=== PATIENT | female | born 1950 | race Caucasian/White ===

== ENCOUNTER 2021-01-30 09:52 | Outpatient (AMBR) | payer MEDICARE, BC, SELFPAY ==
--- NOTE | 2021-01-22 09:08 | PTNOTE_ITS ---
PT OP Initial Eval Patient Information Visit Reasons: low back pain Medical Diagnosis: M54.16 Z98.1 M54.5 Treatment Dx #1: LBP with radiculopathy Date of Onset: 06/2020 Initial Assessment Subjective Pt is 70 yr old female s/p lumbar fusion in June that reports some stiffness and weakness in the core. She feels limited with yardwork and some HH chores that involve bending, lifting and pulling. Pt reports the LE pain that she had prior to sx is gone. PMH: TKA x2, lumbar fusion 2020, bladder support Imaging: X-ray and MRI of L/S in EMR Pt goal: to strengthen her core Objective Trunk ArOM: B SB 50% of normal with pain L>R Extension: 10% Flexion: 8 from floor with LBP B rotation: 60% R SLR ROM: 90 deg. L SLR: 90 deg LE strength: B hamstrings: 4-/5 Quads 4-/5 Hip abd/add 4-/5 Core activation: 4-/5 with rotary LE isometrics Assessment Pt presentation consistent with lumbar fusion with decreased deep abdominal and core activation. Pt requires skilled therapy in order to improve core activation and has fair rehab potential. Short Term and Prison Goals 1. Ind with HEP 2. Improved core activation with resisted LE rotation to at least 4+/5 3. Pt will demonstrate proper core activation in standing, quadruped and supine positions Treatment Plan 1. Manual therapy 2. Therex 3. Modalities as indicated, moist heat pack, ice, electrical stimulation,? Frequency and Duration 2x a week for 6 weeks Certification Dates: 01/22/21 to 04/22/21 Office Procedures PT Treatments PT Date of Service: 01/22/21 OP PT Eval Mod Complex 30 minutes: Yes
--- NOTE | 2021-01-30 17:56 | PT.ODAYNRPT ---
PT Outpatient Daily Note Date of Service: 01/30/21 OP Daily Note Visit Reasons: low back pain Outpatient Physical Therapy Treatment Date: 01/30/21 Subjective: Same as time of evaluation Objective: See f/S for therex MT: STM to L/S with Mahamed x10' Assessment: Low tissue irritability of L/S with MT and therex today Plan: Continue per POC Office Procedures PT Treatments PT Date of Service: 01/22/21 OP PT Eval Mod Complex 30 minutes: Yes PT Treatments PT Date of Service: 01/30/21 Therapeutic Exercise 15 minutes: Yes Manual Watermelon Inspector 15 minutes: Yes
== END 2021-02-03 23:59 | disposition home or self-care (01) ==
PROVIDERS: PCP Family Medicine; Referring Provider Family Medicine; Visit Provider Physician Assistant
DX: M54.16 Radiculopathy, lumbar region (principal); M54.50 Low back pain, unspecified; M47.896 Other spondylosis, lumbar region; R53.1 Weakness; M53.86 Other specified dorsopathies, lumbar region
CPT/HCPCS: 97110; 97140; 97162

== ENCOUNTER 2021-02-11 09:01 | Outpatient (AMBR) | payer MEDICARE, BC, SELFPAY ==
--- NOTE | 2021-02-04 13:20 | PTNOTE_ITS ---
PT Outpatient Daily Note Date of Service: 02/04/2021 OP Daily Note Visit Reasons: low back pain Outpatient Physical Therapy Treatment Date: 02/04/21 Subjective: pt states her back is feeling better but still is very cautions. Objective: see flow sheet. Assessment: pt questioned LTR due to her precautions so we stopped the LTR. she completed all other ther ex. during STM using thera bar to her back noted she had muscle tension on B sides of the mid back but the L side was greater than the R. pt was surprised to have tension there if she has low back issues. informed pt about possible compensation for the LBP. Plan: continue POC per PT. Length of Time (minutes) of Treatment: 30 Minutes MAKE UP OPERATOR HELPER Service Modifier Method I: Divide the number of min of care provided by the MAKE UP OPERATOR HELPER/TECHNOLOGY TRAINING ASSOCIATE by the total min of care provided then multiply by 100. If greater than 11 percent modifier is required. Method II: Divide the total time of care provided to patient by 10 (round to the nearest whole number) and add 1 min. to set the minimum time requirement. If treatment total was 60 min., then 10% of 6 min Did MAKE UP OPERATOR HELPER provide more than 10% of the care?: Yes PT CQ modifier applied: CQ Modifier applied Office Procedures PT Treatments PT Date of Service: 02/04/21 Therapeutic Exercise 30 minutes: Yes
--- NOTE | 2021-02-06 10:06 | PT.ODAYNRPT ---
PT Outpatient Daily Note Date of Service: 02/06/2021 OP Daily Note Visit Reasons: low back pain Outpatient Physical Therapy Treatment Date: 02/06/21 Subjective: Pt reports she is feeling little better. Objective: See flow chart for therex. MT: STM w/ graston x 10mins. Assessment: Pt feeling little cramps to anterior hips w/ supine marches but was able to complete reps. Pt tolerated MT well w/ out complaints. Muscle tension LB to thoracic spinalis. Plan: Cont POC per PT. Length of Time (minutes) of Treatment: 30 Minutes Office Procedures PT Treatments PT Date of Service: 02/06/21 Therapeutic Exercise 30 minutes: Yes PT Treatments PT Date of Service: 02/04/21 Therapeutic Exercise 30 minutes: Yes
== END 2021-03-05 23:59 | disposition home or self-care (01) ==
PROVIDERS: PCP Family Medicine; Referring Provider Family Medicine; Visit Provider Physician Assistant
DX: M54.16 Radiculopathy, lumbar region (principal); Z98.1 Arthrodesis status; M47.896 Other spondylosis, lumbar region; M54.50 Low back pain, unspecified
CPT/HCPCS: 97110

== ENCOUNTER 2024-07-14 14:34 | Inpatient (IN) | payer MEDICARE, BC, SELFPAY ==
--- NOTE | 2024-07-14 15:21 | XR_ITS ---
Examination: Knee, left , 3 views Technique: Knee AP, lateral, oblique 3 views Date and time of exam: July 14, 2024 1629 hrs. Indications: Patient fell today with injury to the knee, knee pain Findings: Total left knee arthroplasty. Satisfactory alignment Moderate fluid in the joint space Possible fracture involving the lateral femoral condyle Impression: Recommend CT scan knee without contrast follow-up to exclude fracture of the lateral femoral condyle
[2024-07-14 15:23] VITALS: PULSE 67; RESP 20; O2SAT 99; BMI 29.2
[2024-07-14] MEDS: fentaNYL CIT INJ 50 mCg/ML AMP 2ML IVP (15:33)
[2024-07-14] MEDS: ONDANSETRON INJ 2 MG/ML INJ 2 ML 4 MG IV (15:33)
[2024-07-14 15:42] VITALS: BP 157/81; PULSE 66; RESP 16; TEMP 36.7; O2SAT 97
--- NOTE | 2024-07-14 15:59 | PD.EDLOWEX ---
Lower Extremity Injury RME/HPI General Chief Complaint: Extremity Injury, Lower Stated Complaint: KNEE PAIN Time Seen by Provider: 07/14/24 14:41 Arrival date/time: 07/14/24 14:34 RME / HPI RME / HPI Narrative: 74 year old female presents to the ED, BIBA from home, for evaluation of left knee pain. According to EMS, the patient reports twisting her left ankle, which caused her to lose balance and fall. She was able to prevent the fall by holding onto a rail. The patient denies actually falling to the ground. EMS states that the patient experienced severe pain with any movement of the left leg or knee. No pain medication was administered en route. Upon arrival to the ED, the patient appears to be in pain and complains of left knee pain. No other injuries are reported. Related Data Previous Rx's ?Medication ?Instructions ?Recorded donepezil 5 mg tablet 10 mg (2 x 5 mg) PO HS 14 days #28 07/18/24 tabs hydrocodone 5 mg-acetaminophen 325 1 tab PO Q4HR PRN Pain Scale 4-6 07/18/24 mg tablet (Moderate #10 tabs sennosides 8.6 mg tablet (senna) 8.6 mg PO QDAY PRN constipation 14 07/18/24 days #14 tabs sertraline 25 mg tablet 75 mg (3 x 25 mg) PO HS 14 days 07/18/24 #42 tabs Allergies Allergy/AdvReac Type Severity Reaction Status Date / Time No Known Drug Allergies Allergy Verified 07/14/24 20:10 Review of Systems Review of Systems Narrative Review of Systems: GEN: No fever, no chills, no weight loss EYES: No discharge, no visual changes, no pain HEENT: No ear pain, no congestion, no sore throat PULM: No shortness of breath, no cough, no congestion CV: No chest pain, no palpitations GI: No nausea, no vomiting, no diarrhea, no pain, no constipation : No frequency, no urgency, no dysuria MUSC/SKEL: +Left knee pain. no back pain SKIN: No rash NEURO: No weakness, no headache Past Medical History Past Medical History GASTROINTESTINAL: Positive Gastrointestinal Disorders MUSCULOSKELETAL: Positive Musculoskeletal Disorders and Carpal Tunnel Syndrome (bilat) OTHER HISTORY: Positive Falls Surgical History SURGICAL: Positive Joint Replacement and Knee Sx Social History SMOKING STATUS: Never smoker ED Exam Narrative Physical exam: GENERAL APPEARANCE: alert and oriented x 4, well-developed, well-nourished, appears to be in pain HEENT: Normocephalic, atraumatic; pupils equal, round, reactive to light; EOMI; mucous membranes pink, moist; oropharynx clear NECK: Supple LUNGS: CTABL; no wheezes, no rales, no rhonchi HEART: Regular rate, regular rhythm; normal S1, S2; no murmurs ABDOMEN: non distended; normal BS; soft, no tenderness, no guarding, no rebound; no masses, no organomegaly, no hernia BACK: no CVA tenderness EXTREMITIES: LROM of left knee secondary to pain, deformity of the left knee with patella deviated laterally; no edema NEUROLOGIC: awake; alert and oriented x4; cranial nerves II-XII grossly intact; no focal sensory or motor deficits PSYCHIATRIC: appropriate mood and affect SKIN: warm, dry, normal color; no rashes Course Course Course Narrative: 1800: Patient signed out pending CT and final disposition. Quality Measures none Orders Category Date Time Status EKG (ED ONLY) *Do not use* NOW Care 07/14/24 20:[address] knee LT wo con Stat Exams 07/14/24 17:32 Completed CXRP [XR chest 1V portable] Stat Exams 07/14/24 20:51 Completed EKG (ED Only) Stat Exams 07/14/24 20:51 Draft XR knee comp LT 4V Stat Exams 07/14/24 15:21 Completed CBC Stat Lab 07/14/24 21:08 Completed CMP [Comprehensive Metabolic Panel] Stat Lab 07/14/24 21:08 Completed PT [Prothrombin Time with INR] Stat Lab 07/14/24 21:08 Completed PTT [Partial Thromboplastin Time] Stat Lab 07/14/24 21:08 Completed HYDROmorphone INJ [Dilaudid Inj] Med 07/14/24 17:09 Discontinued 1 mg IVP X1 ONE Ondansetron Inj [Zofran Inj] Med 07/14/24 15:15 Discontinued 4 mg IV X1 ONE fentaNYL INJ [Sublimaze Inj] Med 07/14/24 15:15 Discontinued 50 mcg IVP X1 ONE Vital Signs Vital signs: Vital Signs Temperature 98.0 F 07/14/24 15:42 Pulse Rate 66 07/14/24 15:42 Respiratory Rate 16 07/14/24 15:42 Blood Pressure 157/81 H 07/14/24 15:42 Pulse Oximetry (%) 97 07/14/24 15:42 Oxygen Delivery Method Room Air 07/14/24 15:42 Pulse ox is 97% on room air which is adequate. Procedures -ED Orthopedic Joint Reduction Joint #1: Time Out Performed: Yes Side: Left Joint Reduction Location: knee/patella Analgesia: other (Fentanyl ) Technique used: direct manipulation Post-reduction neuro exam: intact Post-reduction vascular: intact Post Reduction X-Ray Obtained: Yes Post Reduction X-Ray Results: reduced Patient Tolerated Procedure: well Procedural Sedation Indication: fracture/dislocation reduction ASA: 1 Preparation: property assessment monitor applied, pulse oximeter, supplemental O2 applied, suction/airway equipment at bedside and IV secured Fentanyl: IV Fentanyl dose (mcg): 50 Extremity Injury, Lower MDM Narrative MDM Narrative:: Cuca Felton am scribing for and in the presence of Dr. Carlos. Patient data External records reviewed:: [facility] previous records (I reviewed H&P from 10/10/2020 ) and EMS form Clinical information provided by:: patient and EMS Social determinants that could affect healthcare access:: none Patient has the following chronic illnesses:: No chronic medical history reported How is presenting disease/condition affected by chronic disease/condition?: no chronic disease Evaluation data The following diagnostics were reviewed and interpreted by me:: radiology exam(s) Lab and/or radiology exams considered but not ordered:: None Interpretation Summary: Ordering Physician: Gabriela Carlos MD Date of Service: 07/14/24 Procedure(s): XR knee comp LT 4V Accession Number(s): [id number] cc: Carlton Warren MD; Gabriela Carlos MD; Saúl Hughes MD~ Examination: Knee, left , 3 views Technique: Knee AP, lateral, oblique 3 views Date and time of exam: July 14, 2024 1629 hrs. Indications: Patient fell today with injury to the knee, knee pain Findings: Total left knee arthroplasty. Satisfactory alignment Moderate fluid in the joint space Possible fracture involving the lateral femoral condyle Impression: Recommend CT scan knee without contrast follow-up to exclude fracture of the lateral femoral condyle Dictated By: Carlton Warren MD Signed By: <Electronically signed by Carlton Warren MD in OV> 07/14/24 5149 Medications / Prescriptions Medications or Prescriptions considered but not ordered:: None Medication administrations:: Medication Administration History Acetaminophen (Acetaminophen 325 Mg Tablet) 650 mg PO Q6H PRN PRN Reason: Fever >100.3 or pain 1-3 Stop: 08/13/24 21:05 Hydrocodone Bitart/Acetaminophen (Hydrocodone/Apap 5/325 Tablet) 1 tab PO Q4HR PRN PRN Reason: PAIN SCALE 4-6 (Moderate Stop: 07/19/24 21:05 Last Admin: 07/18/24 11:00 Dose: 1 tab Documented By: Admin: 07/17/24 20:31 Dose: 1 tab Documented By: Admin: 07/17/24 08:36 Dose: 1 tab Documented By: Admin: 07/16/24 20:36 Dose: 1 tab Documented By: Admin: 07/16/24 12:32 Dose: 1 tab Documented By: Admin: 07/16/24 05:26 Dose: 1 tab Documented By: Admin: 07/15/24 12:56 Dose: 1 tab Documented By: Admin: 07/15/24 08:05 Dose: 1 tab Documented By: Admin: 07/15/24 00:36 Dose: 1 tab Documented By: MARIIA Donepezil HCl (Donepezil Hcl 5 Mg Tablet) 10 mg PO HS MARYELLEN Stop: 08/14/24 20:59 Last Admin: 07/17/24 20:32 Dose: 10 mg Documented By: Admin: 07/16/24 20:36 Dose: 10 mg Documented By: Admin: 07/15/24 20:35 Dose: 10 mg Documented By: AWA Heparin Sodium (Porcine) (Heparin Sod Inj 5000 Unit/Ml Vial) 5,000 unit SC Q8HR MARYELLEN Stop: 07/28/24 21:59 Last Admin: 07/18/24 13:20 Dose: 5,000 unit Documented By: CHARY Co-signed By: JAREK Admin: 07/18/24 05:08 Dose: 5,000 unit Documented By: MARIIA Co-signed By: REECE Admin: 07/17/24 21:27 Dose: 5,000 unit Documented By: MARIIA Co-signed By: REZA Admin: 07/17/24 13:13 Dose: 5,000 unit Documented By: FABIÁN Co-signed By: CHENG Admin: 07/17/24 05:02 Dose: 5,000 unit Documented By: AWA Co-signed By: REECE Admin: 07/16/24 20:42 Dose: 5,000 unit Documented By: AWA Co-signed By: BRIAN Admin: 07/16/24 14:22 Dose: 5,000 unit Documented By: Co-signed By: BLAINE Admin: 07/16/24 05:26 Dose: 5,000 unit Documented By: AWA Co-signed By: DIEGO Admin: 07/15/24 20:40 Dose: 5,000 unit Documented By: AWA Co-signed By: REECE Admin: 07/15/24 13:00 Dose: 5,000 unit Documented By: Co-signed By: AYDEN Admin: 07/15/24 06:02 Dose: Not Given Documented By: MARIIA Non-Admin Reason: Held for Procedure Admin: 07/14/24 22:26 Dose: 5,000 unit Documented By: LUKAS Co-signed By: AGATHA Hydralazine HCl (Hydralazine Inj 20 Mg/Ml Vial) 10 mg IV Q4HR PRN PRN Reason: Hypertension Stop: 08/14/24 17:18 Morphine Sulfate (Morphine Sulf Inj 10 Mg/Ml Vial) 2 mg IVP Q6H PRN PRN Reason: Pain 7-10 Stop: 07/19/24 21:06 Last Admin: 07/16/24 00:04 Dose: 2 mg Documented By: Admin: 07/15/24 17:23 Dose: 2 mg Documented By: Admin: 07/15/24 11:18 Dose: 2 mg Documented By: Admin: 07/15/24 03:23 Dose: 2 mg Documented By: MARIIA Polyethylene Glycol (Polyethylene Glycol 17 Gm Packet) 17 gm PO QDAY PRN; Protocol PRN Reason: constipation Stop: 08/16/24 08:59 Sennosides (Senna Tablet) 1 tab PO QDAY MARYELLEN; Protocol Stop: 08/16/24 08:59 Last Admin: 07/18/24 08:00 Dose: 1 tab Documented By: [email or web address] Admin: 07/17/24 10:48 Dose: Not Given Documented By: FABIÁN Non-Admin Reason: Already given Sertraline HCl (Sertraline Hcl 25 Mg Tablet) 75 mg PO HS MARYELLEN Stop: 08/14/24 20:59 Last Admin: 07/17/24 20:31 Dose: 75 mg Documented By: Admin: 07/16/24 20:36 Dose: 75 mg Documented By: Admin: 07/15/24 20:34 Dose: 75 mg Documented By: AWA Discontinued Medications Acetaminophen (Acetaminophen 325 Mg Tablet) 650 mg PO Q6H PRN PRN Reason: Fever >101.5 Stop: 08/13/24 21:05 Fentanyl Citrate (Fentanyl Cit Inj 50 Mcg/Ml Amp 2ml) 50 mcg IVP X1 ONE Stop: 07/14/24 15:16 Last Admin: 07/14/24 15:33 Dose: 50 mcg Documented By: DB Hydromorphone HCl (Hydromorphone Inj 2 Mg/Ml Vial) 1 mg IVP X1 ONE Stop: 07/14/24 17:10 Last Admin: 07/14/24 17:18 Dose: 1 mg Documented By: MARIO Sodium Chloride (Ns) 1,000 mls @ 75 mls/hr IV .[id number] [facility] Stop: 08/13/24 21:14 Last Admin: 07/16/24 05:27 Dose: 75 mls/hr Documented By: Infusion: 07/16/24 02:16 Dose: Infused Documented By: Admin: 07/15/24 12:56 Dose: 75 mls/hr Documented By: Infusion: 07/15/24 10:49 Dose: Infused Documented By: Admin: 07/14/24 21:29 Dose: 75 mls/hr Documented By: BD Lactulose (Lactulose Syrup 20 Gm/30 Ml Udc) 20 gm PO X1 ONE; Protocol Stop: 07/17/24 15:01 Last Admin: 07/17/24 15:31 Dose: 20 gm Documented By: SY Morphine Sulfate (Morphine Sulf Inj 10 Mg/Ml Vial) 2 mg IVP Q6H PRN PRN Reason: PAIN Stop: 07/19/24 21:06 Last Admin: 07/14/24 22:27 Dose: 2 mg Documented By: BD Ondansetron HCl (Ondansetron Inj 2 Mg/Ml Inj 2 Ml) 4 mg IV X1 ONE; Protocol Stop: 07/14/24 15:16 Last Admin: 07/14/24 15:33 Dose: 4 mg Documented By: DB Potassium Chloride (Potassium Chloride 10% 20 Meq/15 Ml Udc) 40 meq PO X1 ONE Stop: 07/15/24 08:02 Last Admin: 07/15/24 08:08 Dose: 40 meq Documented By: LT Potassium Chloride (Potassium Chloride 10% 20 Meq/15 Ml Udc) 40 meq PO X1 ONE Stop: 07/17/24 07:18 Last Admin: 07/17/24 08:36 Dose: 40 meq Documented By: SY Potassium Chloride (Potassium Chloride 20 Meq Tabcr) 20 meq PO X1 ONE Stop: 07/18/24 06:50 Last Admin: 07/18/24 07:57 Dose: 20 meq Documented By: [email or web address] Sennosides (Senna Tablet) 1 tab PO QDAY PRN; Protocol PRN Reason: constipation Stop: 08/16/24 05:33 Last Admin: 07/17/24 08:36 Dose: 1 tab Documented By: FABIÁN See above Consultations Consultation(s) initiated? (list below): No Diagnosis Most likely diagnosis given after review of the tests above:: Patella dislocation, possible femoral condyle fracture Admission Indicated Admission indicated?: not indicated Explain why admission is indicated or not indicated:: 1800: Patient signed out pending CT and final disposition. Admission Request Was there a request for admission?: No Disposition Plan Disposition Plan: other (specify) (Patient signed out) Discharge Plan Plan Patient condition on transfer: Stable Problem List Clinical Impression: Fall, Left knee pain, Closed dislocation of patella Patient/Caregiver Discharge Instructions Discharge Activity: as per physical therapy Discharge Order Discharge Orders: Discharge (Routine); Ordered 07/18/24 Ordered By: Agnieszka Swift
[2024-07-14] MEDS: HYDROmorphone INJ 2 MG/ML VIAL 1 MG IVP (17:18)
--- NOTE | 2024-07-14 17:32 | XR_ITS ---
Examination: CT left knee, without contrast. 2-D sagittal reconstructions. 2-D coronal reconstructions. 3-D reconstructions. Date and time of exam:July 14, 2024 1553 hrs. Indications: Patient fell today with injury to the knee, knee pain CTDI: vol (mGy):11.3 DLP: (mGycm):345 Technique: Multiple 1.25 mm axial sections of the left knee without intravenous contrast have been obtained. 2-D sagittal and coronal reconstructions have been obtained. 3-D reconstructions have been obtained. Low dose protocols were performed. One or more of the following dose reduction techniques were used; automated exposure control, adjustment of the mA and/or KV according to patient size, use of iterative reconstruction technique. Findings: Artifacts from the knee arthroplasty significantly limits this study Fracture lateral femoral condyle, coronal image 43, with mild offset, 2 mm Tibiofibular intact Impression: Acute fracture through the lateral femoral condyle with minimal offset
--- NOTE | 2024-07-14 18:32 | PD.EDADDENDU ---
Emergency Room Addendum Addendum Narrative: 1814: Care assumed from Dr. Carlos, the previous shift emergency physician. Past medical, surgical, social and family history reviewed. Vitals and home medications reviewed. Results and treatment plan discussed. I will assume the care of the patient at this time and will follow the patient, pending CT of the left knee results. Please refer to the emergency department record for history and examination from initial visit. 2147: Discussed case with Dr. Rodriguez from orthopedic surgery regarding consultation. Discussed patients ED course, exam findings, labs, and radiology results. States to admit the patient and agrees to consult. 2149: Discussed case with Dr. Almendarez from Hospitalist service regarding admission. Discussed patients ED course, exam findings, labs, and radiology results. The Hospitalist agrees to accept the patient for admission. RADIOLOGY RESULTS: [facility] Report Signed Patient: XAVIER FORREST Record#: [id number] Birthdate: 1950 Age/Sex: 74 / F Location: [facility] Attending Dr: Ordering Physician: Gabriela Carlos MD Date of Service: 07/14/24 Procedure(s): CT knee LT wo con Accession Number(s): [id number] cc: Carltno Warren MD; Gabriela Carlos MD; Saúl Hughes MD~ Examination: CT left knee, without contrast. 2-D sagittal reconstructions. 2-D coronal reconstructions. 3-D reconstructions. Date and time of exam:July 14, 2024 1553 hrs. Indications: Patient fell today with injury to the knee, knee pain CTDI: vol (mGy):11.3 DLP: (mGycm):345 Technique: Multiple 1.25 mm axial sections of the left knee without intravenous contrast have been obtained. 2-D sagittal and coronal reconstructions have been obtained. 3-D reconstructions have been obtained. Low dose protocols were performed. One or more of the following dose reduction techniques were used; automated exposure control, adjustment of the mA and/or KV according to patient size, use of iterative reconstruction technique. Findings: Artifacts from the knee arthroplasty significantly limits this study Fracture lateral femoral condyle, coronal image 43, with mild offset, 2 mm Tibiofibular intact Impression: Acute fracture through the lateral femoral condyle with minimal offset Dictated By: Carlton Warren MD Signed By: <Electronically signed by Carlton Warren MD in OV> 07/14/24 1823
[2024-07-14 19:20] VITALS: BP 148/70; PULSE 70; RESP 19; TEMP 36.6; O2SAT 97
--- NOTE | 2024-07-14 20:51 | XR_ITS ---
Examination: AP chest single view Technique one AP portable upright chest single view Exam date and time: July 14, 2024 2112 hrs. Indications: Admission chest x-ray Findings: Mild enlargement cardiac contour No pneumonia or pulmonary edema Mild to moderate elevation right hemidiaphragm Impression: No pneumonia or pulmonary edema
--- NOTE | 2024-07-14 20:51 | EKG_ITS ---
[facility] Test Date: 2024-07-14 Pat Name: XAVIER FORREST Department: Room: - Gender: Female Director Law Enforcement: : 1950 Requested By: Darian Augustin Order Number: [id number] Reading MD: Darian Augustin Measurements Intervals [place] Rate: 68 P: 43 [place]: 176 QRS: 8 QRSD: 98 T: 48 QT: 393 QTc: 421 Interpretive Statements SINUS RHYTHM VOLTAGE CRITERIA FOR LVH [MEETS CRITERIA IN ONE OF: R(aVL), S(V1), R(V5), R(V5/V6)+S(V1)] POSSIBLE INFERIOR MYOCARDIAL INFARCTION , PROBABLY OLD [30 ms Q WAVE IN II/aVF] No previous ECG available for comparison /store/S0/[id number]/[id number].pdf
[2024-07-14 21:00] VITALS: BP 165/76; PULSE 66; RESP 16; TEMP 36.9; O2SAT 96
--- NOTE | 2024-07-14 21:08 | PD.EVENT ---
Documentation for date of: 07/14/24 Event Note Event Note: A 73-year-old female presented to the ER with the chief complaint of left knee pain following a fall. The patient reported that she fell after stepping down from her front porch stairs when her foot twisted awkwardly. She landed on her left side, injuring her left knee. She denied any head trauma or loss of consciousness. The patient noted a history of prior knee problems and previous knee surgeries. She was unable to ambulate after the incident and was brought in by ambulance. The patient has a history of memory impairment and hyperlipidemia. Surgical history includes bilateral knee replacements, back surgery, and hand surgery (thumb). Current medications include Aricept, Zoloft, and vitamins; she recently discontinued Lipitor. Social history includes no reported tobacco, alcohol, or recreational drug use. She typically ambulated independently at baseline without assistive devices. In the ER, vital signs recorded as temp 98.0 F, HR 66 bpm, RR 16, BP 157/[address] showed an acute fracture through the lateral femoral condyle with minimal offset. EKG: Sinus rhythm, LVH. No pneumonia or pulmonary edema on CXR. Orthopedic surgery was consulted, and the patient was admitted for further management.
[2024-07-14 21:17] LABS: Basophils % (Auto) 0 % (0-2.5); Eosinophils % (Auto) 0 % (0-10); Hematocrit 36.4 % (36.0-46.0); Hemoglobin 12.9 g/dL (12.0-16.0); Immature Granulocytes % (Auto) 0 % (0-0); Immature Granulocytes Auto 0.02 Thou/mm3 (0.00-0.00); Lymphocytes # (Auto) 1.1 Thou/mm3 (1.0-4.8); Lymphocytes % (Auto) 11 % (10-50); Mean Corpuscular HGB Conc 35.4 g/dl (31.0-37.0); Mean Corpuscular Hemoglobin 30.2 pg (25.0-35.0); Mean Corpuscular Volume 85 fL (80-100); Monocytes # (Auto) 0.4 Thou/mm3 (0.0-0.8); Monocytes % (Auto) 4 % (0-12); Neutrophils # (Auto) 8.2 Thou/mm3 (1.8-7.7); Neutrophils % (Auto) 85 % (37-80); Nucleated Red Blood Cell % 0 /100 WBC (0); Platelet Count 167 Thou/mm3 (140-440); RDW Standard Deviation 39.6 fL (36.4-46.3); Red Blood Count 4.27 Miln/mm3 (4.00-5.20); White Blood Count 9.7 Thou/mm3 (3.6-11.0)
[2024-07-14] MEDS: SODIUM CHLORIDE 0.9% 1000 ML 1,000 ML 75 ML IV (21:29)
[2024-07-14 21:31] LABS: Alanine Aminotransferase 12 U/L (10-49); Albumin, Serum 4.2 gm/dL (3.4-4.8); Albumin/Globulin Ratio 1.6 (1.2-2.2); Alkaline Phosphatase 71 U/L (46-116); Anion Gap 7 (7-16); Aspartate Amino Transferase 19 U/L (0-34); BUN/Creatinine Ratio 23 Ratio (12-20); Bilirubin,Total 0.7 mg/dL (0.3-1.2); Blood Urea Nitrogen 16 mg/dL (9-23); Calcium 9.6 mg/dL (8.3-10.6); Calcium (Corrected) 9.6 mg/dL (8.5-10.1); Carbon Dioxide 28.6 mMol/L (20.0-31.0); Chloride 104 mMol/L (98-107); Creatinine (Component) 0.7 mg/dL (0.6-1.3); Estimated Creatinine Clearance 69.4 mL/min (>60); Globulin 2.7 gm/dL (2.3-3.5); Glucose 138 mg/dL (74-106); Osmolality,Calculated 282 (275-295); Potassium 4.4 mMol/L (3.4-5.1); Sodium 140 mMol/L (136-145); Total Protein 6.9 gm/dL (5.7-8.2); eGFR > 60 See Note
[2024-07-14 21:35] LABS: Partial Thromboplastin Time 25.3 Seconds (22.0-36.0); Prothrombin Time 11.4 Seconds (9.0-12.2)
--- NOTE | 2024-07-14 21:50 | PD.RESHP ---
Documentation for date of: 07/14/24 HPI History of Present Illness Chief complaint: Left knee pain History of present illness: The patient is a 74-year-old female with a previous medical history of Alzheimer's dementia, osteoporosis, hyperlipidemia who was brought to the ED due to mechanical fall. She reports that she was stepping down her porch, twisted her ankle and fell on the left leg. She denies hitting her head, losing consciousness, feeling dizzy, weak before the fall. Her daughter is at the bedside, reports that the patient has a history of falls. She was diagnosed with Alzheimer's disease approximately in 2019, gradually requiring more care. ED course: Blood pressure 157/91, pulse 66, afebrile, saturating well on room air. Labs show WBC count 9.7, hemoglobin 12.9, platelets 167, INR 1.0, sodium 140, potassium 4.4, BUN 16, creatinine 07, glucose 138, imaging showed acute fracture of lateral femoral condyle with minimal offset, chest x-ray was negative for pneumonia or pulmonary edema. EKG showed sinus rhythm. Patient is going to be admitted for acute lateral condyle fracture treatment and management. Social history: Former smoker, former daily drinker (a few drinks every day, stopped in 2019).Lives with her daughter, due to cognitive decline does not cook or drive. Ambulates around the house on herself. Surgical history: Bilateral knee replacement Home medications: Sertraline, donepezil, daughter denies that the patient is taking blood thinners. Review of Systems Review of Systems Systems Reviewed: All systems reviewed, normal except as documented Past Medical History Past Medical History NEUROLOGIC: Positive Neurological Disorders and Alzheimer's Disease GASTROINTESTINAL: Positive Gastrointestinal Disorders MUSCULOSKELETAL: Positive Musculoskeletal Disorders and Carpal Tunnel Syndrome (bilat) OTHER HISTORY: Positive Falls Surgical History SURGICAL: Positive Joint Replacement and Knee Sx Social History SMOKING STATUS: Never smoker Exam Vital Signs Temp Pulse Resp BP Pulse Ox O2 Del Method 98 F 70 19 148/70 H 97 Room Air 07/14/24 19:20 07/14/24 19:20 07/14/24 19:20 07/14/24 19:20 07/14/24 19:20 07/14/24 19:20 Narrative Exam Physical Exam General: Awake and in no acute distress. Conversational and non-toxic appearing. HEENT: Normocephalic, atraumatic, mucous membranes moist. Heart: Regular rate and rhythm, no murmurs. Lungs: Clear to auscultation with no wheezing or crackles. Abdomen: Soft, nondistended, nontender, positive bowel sounds. ?No guarding or rebound tenderness. Neurologic: Alert and oriented x2 (reports today is June), no gross neurological deficit, and patient able to move all 4 extremities. Extremities: No edema. Left knee is in splint. Pain in the left knee during movement. Able to wiggle toes. Skin: No rash or ecchymoses. Results: Labs 07/15/24 04:37 07/14/24 21:08 Labs: Short CBC 07/14/24 Range/Units 21:08 WBC 9.7 (3.6-11.0) Thou/mm3 Hgb 12.9 (12.0-16.0) g/dL Hct 36.4 (36.0-46.0) % Plt Count 167 (140-440) Thou/mm3 BMP 07/14/24 21:08 Sodium 140 Potassium 4.4 Chloride 104 Carbon Dioxide 28.6 BUN 16 Creatinine 0.7 Glucose 138 H Calcium 9.6 Liver Function 07/14/24 Range/Units 21:08 Total Bilirubin 0.7 (0.3-1.2) mg/dL AST 19 (0-34) U/L ALT 12 (10-49) U/L Alkaline Phosphatase 71 (46-116) U/L Albumin 4.2 (3.4-4.8) gm/dL Quality Measures Quality Measures VTE prophylaxis Advance care planning discussed with:: patient and child Medications Home Medications and Allergies Home Medications ?Medication ?Instructions ?Recorded ?Confirmed ?Type No Known Home Medications 10/10/20 10/10/20 History Allergies Allergy/AdvReac Type Severity Reaction Status Date / Time No Known Drug Allergies Allergy Verified 07/14/24 20:10 Visit Medications Acetaminophen (Acetaminophen 325 Mg Tablet) 650 mg PO Q6H PRN PRN Reason: Fever >100.3 or pain 1-3 Stop: 08/13/24 21:05 Hydrocodone Bitart/Acetaminophen (Hydrocodone/Apap 5/325 Tablet) 1 tab PO Q4HR PRN PRN Reason: PAIN SCALE 4-6 (Moderate Stop: 07/19/24 21:05 Heparin Sodium (Porcine) (Heparin Sod Inj 5000 Unit/Ml Vial) 5,000 unit SC Q8HR MARYELLEN Stop: 07/28/24 21:59 Sodium Chloride (Ns) 1,000 mls @ 75 mls/hr IV .[id number] MARYELLEN Stop: 08/13/24 21:14 Last Admin: 07/14/24 21:29 Dose: 75 mls/hr Morphine Sulfate (Morphine Sulf Inj 10 Mg/Ml Vial) 2 mg IVP Q6H PRN PRN Reason: PAIN Stop: 07/19/24 21:06 Discontinued Medications Acetaminophen (Acetaminophen 325 Mg Tablet) 650 mg PO Q6H PRN PRN Reason: Fever >101.5 Stop: 08/13/24 21:05 Fentanyl Citrate (Fentanyl Cit Inj 50 Mcg/Ml Amp 2ml) 50 mcg IVP X1 ONE Stop: 07/14/24 15:16 Last Admin: 07/14/24 15:33 Dose: 50 mcg Hydromorphone HCl (Hydromorphone Inj 2 Mg/Ml Vial) 1 mg IVP X1 ONE Stop: 07/14/24 17:10 Last Admin: 07/14/24 17:18 Dose: 1 mg Ondansetron HCl (Ondansetron Inj 2 Mg/Ml Inj 2 Ml) 4 mg IV X1 ONE; Protocol Stop: 07/14/24 15:16 Last Admin: 07/14/24 15:33 Dose: 4 mg Assessment & Plan Plan The patient is a 74-year-old female with a previous medical history of Alzheimer's dementia, osteoporosis, hyperlipidemia who was brought to the ED due to mechanical fall. Patient is going to be admitted for acute lateral condyle fracture treatment and management. #Acute left femoral condyle fracture #History of osteoporosis Due to mechanical fall. Plan: - Consult ortho - Pain control - Left knee splinting - Physical therapy #Alzheimer disease #Cognitive decline #Gait imbalance Falls most likely in the setting of gradually progressive Alzheimer dementia. Patient is AOx2, according to the daughter, has a history of falls. Daughter is inquiring regarding possibility of SNF placement for rehabilitation. Plan: - Continue sertraline - Continue donepezil - Physical therapy eval - Follow-up outpatient - Patient will benefit fron SNF placement on discharge Health maintenance: FEN: NPO DVT prophylaxis: heparin sc GI prophylaxis: none Dispo: med surg CODE STATUS: Full code Plan of care discussed with attending Dr. Almendarez. Tressa East MD, PGY 1. Attending Provider Attestation/Addendum Pt was evaluated and plan formulated together with the housestaff team. I have reviewed the residents note above and agree with most of its content. Please refer to the residents note for additional details.
[2024-07-14] MEDS: HEPARIN SOD INJ 5000 UNIT/ML VIAL SC (22:26)
[2024-07-14] MEDS: MORPHINE SULF INJ 10 MG/ML VIAL 2 MG IVP (22:27)
[2024-07-14 22:36] VITALS: BP 134/70; PULSE 66; RESP 18; TEMP 36.6; O2SAT 98
--- NOTE | 2024-07-14 23:39 | PC.NURSE ---
per dr.yang resendiz to take Labtrip wit water pt is npo
[2024-07-15] VITALS: BP 159/72; PULSE 72; RESP 18; TEMP 36.3; O2SAT 96
[2024-07-15] MEDS: HYDROcodone/APAP 5/325 TABLET 1 TAB PO ×3 (00:36→12:56)
[2024-07-15 02:23] VITALS: BMI 30.9
[2024-07-15] MEDS: MORPHINE SULF INJ 10 MG/ML VIAL 2 MG IVP ×3 (03:23→17:23)
[2024-07-15 04:00] VITALS: BP 130/58; PULSE 67; RESP 18; TEMP 36.5; O2SAT 94
--- NOTE | 2024-07-15 05:32 | PC.NURSE ---
Pt unable to vied, bladder scan done and shows 695cc, MD Tang made aware, to insert a green catheter ordered.
[2024-07-15 05:34] LABS: Basophils % (Auto) 0 % (0-2.5); Eosinophils % (Auto) 0 % (0-10); Hematocrit 33.9 % (36.0-46.0); Hemoglobin 11.9 g/dL (12.0-16.0); Immature Granulocytes % (Auto) 0 % (0-0); Immature Granulocytes Auto 0.03 Thou/mm3 (0.00-0.00); Lymphocytes # (Auto) 1.3 Thou/mm3 (1.0-4.8); Lymphocytes % (Auto) 16 % (10-50); Mean Corpuscular HGB Conc 35.1 g/dl (31.0-37.0); Mean Corpuscular Hemoglobin 30.6 pg (25.0-35.0); Mean Corpuscular Volume 87 fL (80-100); Monocytes # (Auto) 0.6 Thou/mm3 (0.0-0.8); Monocytes % (Auto) 7 % (0-12); Neutrophils # (Auto) 6.1 Thou/mm3 (1.8-7.7); Neutrophils % (Auto) 76 % (37-80); Nucleated Red Blood Cell % 0 /100 WBC (0); Platelet Count 166 Thou/mm3 (140-440); RDW Standard Deviation 40.6 fL (36.4-46.3); Red Blood Count 3.89 Miln/mm3 (4.00-5.20)
[2024-07-15 05:52] LABS: Anion Gap 8 (7-16); BUN/Creatinine Ratio 25 Ratio (12-20); Blood Urea Nitrogen 15 mg/dL (9-23); Calcium 9.2 mg/dL (8.3-10.6); Carbon Dioxide 27.7 mMol/L (20.0-31.0); Chloride 104 mMol/L (98-107); Creatinine (Component) 0.6 mg/dL (0.6-1.3); Estimated Creatinine Clearance 83.2 mL/min (>60); Glucose 125 mg/dL (74-106); Osmolality,Calculated 281 (275-295); Potassium 3.6 mMol/L (3.4-5.1); Sodium 140 mMol/L (136-145); eGFR > 60 See Note
--- NOTE | 2024-07-15 07:57 | PC.NURSE ---
Per MD Stone no surgery for pt continue with regular diet and will come see pt this am.
[2024-07-15 08:00] VITALS: BP 148/64; PULSE 70; RESP 18; TEMP 37; O2SAT 97
[2024-07-15] MEDS: POTASSIUM CHLORIDE 10% 20 MEQ/15 ML UDC 40 MEQ PO (08:08)
--- NOTE | 2024-07-15 12:31 | PC.SS ---
SS met with patient and daughter, Rae, at bedside. Daughter states patient will need to d/c to SNF due to her having stairs leading into the house front porch and back. Daughter states patient has fallen multiple times recently. She states they aren't sure if patient is having surgery yet. Patient resides alone. However, daughter has moved back down and will be living off main property in a back house. Patient is independent with ADL's. She was using a walker at home. No 02. Patient is currently on 02 here. Daughter states patient has hx: Alzheimers. Patient follows with a Neurologist [facility]. Family provides transportation to appointments. Pharmacy: [facility]. Alt medical decision maker: Rae, daughter,
[2024-07-15] MEDS: SODIUM CHLORIDE 0.9% 1000 ML 1,000 ML 75 ML IV (12:56)
[2024-07-15] MEDS: HEPARIN SOD INJ 5000 UNIT/ML VIAL SC ×2 (13:00→20:40)
--- NOTE | 2024-07-15 13:56 | ESPR_ITS ---
<Statement entered by Kyra Anne MD - 07/22/24 08:55> I reviewed above note and agree with findings and plans. I have also personally examined the patient with medicine team and went over assessment and plan with medical team including sports management internship and resident physician. Documentation for date of: 07/15/24 Senior resident attestation: Patient is a 73-year-old female, past medical history of dementia, hyperlipidemia and osteoporosis, presented following a mechanical fall, of note patient had prior bilateral knee replacements, hardware in place imaging shows acute left femoral condyle fracture, consulted orthopedic surgeon Dr. Rodriguez, pending orthopedic recommendations. Patient evaluated and examined at the bedside, plan of care discussed with rest of the team including my attending physician, except as noted. Quresh PGY2 Subjective Subjective Interval history: Patient admitted overnight for acute fracture of the lateral femoral condyle with minimal offset. Patient stated that she fell yesterday as she was heading up the stairs to enter her home home. Patient denied any dizziness, headaches, shortness of breath, chest pain. Patient denied seizure likely activity. Mild tenderness . Exam Vital Signs Temp Pulse Resp BP Pulse Ox O2 Del Method O2 Flow Rate 98.6 F 70 18 148/64 H 97 Nasal Cannula 2 07/15/24 08:00 07/15/24 08:00 07/15/24 08:00 07/15/24 08:00 07/15/24 08:00 07/15/24 08:00 07/15/24 08:00 Narrative Exam General Appearance: Alert & Oriented X3, well-nourished female who is lying in bed in mild distress. Tenderness present over left knee, worsened with ambulation. HEENT: Skull symmetrical and atraumatic. Conjunctivae pin and moist. Pupils equal, round, reactive to light and accommodation (PERRL). External ear without lesion or discharge. Straight, nares patient, mucosa pink, no discharge. No thyroid nodule appreciated. No cervical lymphadenopathy. Cardio: Normal Rate and Rhythm with S1 and S2 heart sounds. No murmurs or extra heart sounds auscultated. No bruits on carotid auscultation. No peripheral edema or cyanosis. Lungs: Symmetric with good expansion. Chest and back non-tender. Breath sounds vesicular without crackles, wheezing or rhonchi Abdomen: Non-tender, Non-distended, Normal Reactive Bowel Sounds Neuro: Alert, cooperative, oriented to person, place, and time. Speech clear. CN grossly intact. Upper motor strength 5/5 and Lower motor strength 5/5. Sensation intact. Objective Labs 07/17/24 04:35 07/17/24 04:35 Labs: Laboratory Results - last 24 hr 07/14/24 07/15/24 21:08 04:37 WBC 9.7 8.0 RBC 4.27 3.89 L Hgb 12.9 11.9 L Hct 36.4 33.9 L MCV 85 87 MCH 30.2 30.6 MCHC 35.4 35.1 RDW Std Deviation 39.6 40.6 Plt Count 167 166 Neut % (Auto) 85 H 76 Lymph % (Auto) 11 16 [place] % (Auto) 4 7 Eos % (Auto) 0 0 Baso % (Auto) 0 0 Neut # (Auto) 8.2 H 6.1 Lymph # (Auto) 1.1 1.3 [place] # (Auto) 0.4 0.6 Eos # (Auto) 0.0 0.0 Baso # (Auto) 0.0 0.0 Immature Gran # (Auto) 0.02 H 0.03 H Absolute Nucleated RBC 0.00 0.00 Immature Gran % 0 0 Nucleated RBC % 0 0 PT 11.4 INR 1.0 APTT 25.3 Sodium 140 140 Potassium 4.4 3.6 D Chloride 104 104 Carbon Dioxide 28.6 27.7 Anion Gap 7 8 BUN 16 15 Creatinine 0.7 0.6 Estim Creat Clear Calc 69.4 83.2 eGFR > 60 > 60 BUN/Creatinine Ratio 23 H 25 H Glucose 138 H 125 H Calculated Osmolality 282 281 Calcium 9.6 9.2 Corrected Calcium 9.6 Total Bilirubin 0.7 AST 19 ALT 12 Alkaline Phosphatase 71 Total Protein 6.9 Albumin 4.2 Globulin 2.7 Albumin/Globulin Ratio 1.6 Quality Measures Quality Measures VTE prophylaxis Advance care planning discussed with:: patient Assessment & Plan Assessment Current Active Medications: Generic Name Dose Route Start Last Admin Trade Name Freq PRN Reason Stop Dose Admin Acetaminophen 650 mg 07/14/24 21:47 Acetaminophen 325 Mg Tablet PO 08/13/24 21:05 Q6H PRN Fever >100.3 or pain 1-3 Hydrocodone Bitart/Acetaminophen 1 tab 07/14/24 21:06 07/15/24 12:56 Hydrocodone/Apap 5/325 Tablet PO 07/19/24 21:05 1 tab Q4HR PRN Administration PAIN SCALE 4-6 (Moderate Donepezil HCl 10 mg 07/15/24 21:00 Donepezil Hcl 5 Mg Tablet PO 08/14/24 20:59 HS MARYELLEN Heparin Sodium (Porcine) 5,000 unit 07/14/24 22:00 07/15/24 13:00 Heparin Sod Inj 5000 Unit/Ml Vial SC 07/28/24 21:59 5,000 unit Q8HR MARYELLEN Administration Sodium Chloride 1,000 mls @ 75 mls/hr 07/14/24 21:15 07/15/24 12:56 Ns IV 08/13/24 21:14 75 mls/hr .[id number] MARYELLEN Administration Morphine Sulfate 2 mg 07/14/24 23:39 07/15/24 11:18 Morphine Sulf Inj 10 Mg/Ml Vial IVP 07/19/24 21:06 2 mg Q6H PRN Administration Pain 7-10 Sertraline HCl 75 mg 07/15/24 21:00 Sertraline Hcl 25 Mg Tablet PO 08/14/24 20:59 HS MARYELLEN Plan The patient is a 74-year-old female with a previous medical history of Alzheimer's dementia, osteoporosis, hyperlipidemia who was brought to the ED due to mechanical fall. Patient is going to be admitted for acute lateral condyle fracture treatment and management. #Acute left femoral condyle fracture #History of osteoporosis Due to mechanical fall. Plan: - Consult ortho - Pain control - Left knee splinting - Physical therapy #Alzheimer disease #Cognitive decline #Gait imbalance Falls most likely in the setting of gradually progressive Alzheimer dementia. Patient is AOx2, according to the daughter, has a history of falls. Daughter is inquiring regarding possibility of SNF placement for rehabilitation. Plan: - Continue sertraline - Continue donepezil - Physical therapy eval - Follow-up outpatient - Patient will benefit fron SNF placement on discharge Health maintenance: FEN: NPO DVT prophylaxis: heparin sc GI prophylaxis: none Dispo: med surg CODE STATUS: Full code - The patient's plan was discussed with attending Dr. Anne and senior residents Orlin Marie MD PGY1 Internal Medicine
[2024-07-15 16:00] VITALS: BP 124/60; PULSE 70; RESP 18; TEMP 36.9; O2SAT 95
[2024-07-15 20:00] VITALS: BP 135/62; PULSE 71; RESP 20; TEMP 37.1; O2SAT 96
[2024-07-15] MEDS: SERTRALINE HCL 25 MG TABLET 75 MG PO (20:34)
[2024-07-15] MEDS: DONEPEZIL HCL 5 MG TABLET 10 MG PO (20:35)
[2024-07-16] VITALS: BP 139/69; PULSE 83; RESP 18; TEMP 36.8; O2SAT 94
[2024-07-16] MEDS: MORPHINE SULF INJ 10 MG/ML VIAL 2 MG IVP (00:04)
[2024-07-16 04:00] VITALS: BP 147/76; PULSE 90; RESP 20; TEMP 36.6; O2SAT 96
[2024-07-16] MEDS: HEPARIN SOD INJ 5000 UNIT/ML VIAL SC ×3 (05:26→20:42)
[2024-07-16] MEDS: HYDROcodone/APAP 5/325 TABLET 1 TAB PO ×3 (05:26→20:36)
[2024-07-16] MEDS: SODIUM CHLORIDE 0.9% 1000 ML 1,000 ML 75 ML IV (05:27)
[2024-07-16 05:53] LABS: Basophils % (Auto) 1 % (0-2.5); Eosinophils # (Auto) 0.1 Thou/mm3 (0.0-0.5); Eosinophils % (Auto) 1 % (0-10); Hematocrit 33.1 % (36.0-46.0); Hemoglobin 11.3 g/dL (12.0-16.0); Immature Granulocytes % (Auto) 0 % (0-0); Immature Granulocytes Auto 0.02 Thou/mm3 (0.00-0.00); Lymphocytes # (Auto) 1.4 Thou/mm3 (1.0-4.8); Lymphocytes % (Auto) 24 % (10-50); Mean Corpuscular HGB Conc 34.1 g/dl (31.0-37.0); Mean Corpuscular Hemoglobin 30.5 pg (25.0-35.0); Mean Corpuscular Volume 90 fL (80-100); Monocytes # (Auto) 0.6 Thou/mm3 (0.0-0.8); Monocytes % (Auto) 10 % (0-12); Neutrophils # (Auto) 3.9 Thou/mm3 (1.8-7.7); Neutrophils % (Auto) 65 % (37-80); Nucleated Red Blood Cell % 0 /100 WBC (0); Platelet Count 154 Thou/mm3 (140-440); RDW Standard Deviation 41.1 fL (36.4-46.3)
[2024-07-16 06:27] LABS: Alanine Aminotransferase < 7 U/L (10-49); Albumin, Serum 3.7 gm/dL (3.4-4.8); Albumin/Globulin Ratio 1.6 (1.2-2.2); Alkaline Phosphatase 60 U/L (46-116); Anion Gap 7 (7-16); Aspartate Amino Transferase 17 U/L (0-34); BUN/Creatinine Ratio 13 Ratio (12-20); Bilirubin,Total 0.9 mg/dL (0.3-1.2); Blood Urea Nitrogen 8 mg/dL (9-23); Calcium 8.5 mg/dL (8.3-10.6); Calcium (Corrected) 8.7 mg/dL (8.5-10.1); Carbon Dioxide 28.7 mMol/L (20.0-31.0); Chloride 105 mMol/L (98-107); Creatinine (Component) 0.6 mg/dL (0.6-1.3); Estimated Creatinine Clearance 83.2 mL/min (>60); Globulin 2.3 gm/dL (2.3-3.5); Glucose 119 mg/dL (74-106); Magnesium 1.8 mg/dL (1.6-2.6); Osmolality,Calculated 280 (275-295); Phosphorous 2.8 mg/dL (2.4-5.1); Potassium 3.6 mMol/L (3.4-5.1); Sodium 141 mMol/L (136-145); eGFR > 60 See Note
[2024-07-16 08:00] VITALS: BP 133/59; PULSE 88; RESP 18; TEMP 36.1; O2SAT 91
[2024-07-16 12:00] VITALS: BP 135/63; PULSE 82; RESP 19; TEMP 36.6; O2SAT 91
--- NOTE | 2024-07-16 12:57 | PC.NURSE ---
Patient voided at 1250, 200 ml clear urine.
--- NOTE | 2024-07-16 15:13 | ESPR_ITS ---
<Statement entered by Kyra Anne MD - 07/22/24 12:56> I reviewed above note and agree with findings and plans. I have also personally examined the patient with medicine team and went over assessment and plan with medical team including international manager and resident physician. Documentation for date of: 07/16/24 Subjective Subjective Interval history: Patient was seen and examined at bedside. No acute overnight events. Labs are unremarkable, patient is hemodynamically stable, orthopedic surgery evaluated the patient, no need for surgical intervention at this point, continue physical therapy, she will be discharged to SNF for rehabilitation. Exam Vital Signs Temp Pulse Resp BP Pulse Ox O2 Del Method O2 Flow Rate 97.8 F 82 19 135/63 H 91 L Room Air 2 07/16/24 12:00 07/16/24 12:00 07/16/24 12:00 07/16/24 12:00 07/16/24 12:00 07/16/24 12:00 07/16/24 04:00 Narrative Exam GENERAL: no acute distress, AAO x3, well nourished. HEENT: Head AT/ NC. Mucous membranes moist. PERRL. NECK: Supple, no lymphadenopathy, no carotid bruits. CARDIOVASCULAR: RRR. Normal S1/S2, No m/r/g. No pitting edema of bilateral LEs. RESPIRATORY: CTAB. No wheezing, rhonchi, crackles. GASTROINTESTINAL: Abdomen soft, non tender no palpable masses. Bowel sounds present in all 4 quadrants. MUSCULOSKELETAL:?Cast on the left lower extremity, limited range of motion on left side, preserved range of motion on the right lower extremity. NEUROLOGICAL: CN II-XII grossly intact. No focal deficits. Sensation intact, symmetric. PSYCHIATRIC: Awake and alert, not agitated, normal mood and affect. INTEGUMENTARY: No obvious rashes, no jaundice, normal turgor. Objective Labs 07/16/24 04:35 07/16/24 04:35 Labs: Laboratory Results - last 24 hr 07/16/24 04:35 WBC 6.0 RBC 3.70 L Hgb 11.3 L Hct 33.1 L MCV 90 MCH 30.5 MCHC 34.1 RDW Std Deviation 41.1 Plt Count 154 Neut % (Auto) 65 Lymph % (Auto) 24 [place] % (Auto) 10 Eos % (Auto) 1 Baso % (Auto) 1 Neut # (Auto) 3.9 Lymph # (Auto) 1.4 [place] # (Auto) 0.6 Eos # (Auto) 0.1 Baso # (Auto) 0.0 Immature Gran # (Auto) 0.02 H Absolute Nucleated RBC 0.00 Immature Gran % 0 Nucleated RBC % 0 Sodium 141 Potassium 3.6 Chloride 105 Carbon Dioxide 28.7 Anion Gap 7 BUN 8 L Creatinine 0.6 Estim Creat Clear Calc 83.2 eGFR > 60 BUN/Creatinine Ratio 13 Glucose 119 H Calculated Osmolality 280 Calcium 8.5 Corrected Calcium 8.7 Phosphorus 2.8 Magnesium 1.8 Total Bilirubin 0.9 AST 17 ALT < 7 L Alkaline Phosphatase 60 Total Protein 6.0 Albumin 3.7 D Globulin 2.3 Albumin/Globulin Ratio 1.6 Quality Measures Quality Measures VTE prophylaxis Advance care planning discussed with:: patient Assessment & Plan Assessment Current Active Medications: Generic Name Dose Route Start Last Admin Trade Name Freq PRN Reason Stop Dose Admin Acetaminophen 650 mg 07/14/24 21:47 Acetaminophen 325 Mg Tablet PO 08/13/24 21:05 Q6H PRN Fever >100.3 or pain 1-3 Hydrocodone Bitart/Acetaminophen 1 tab 07/14/24 21:06 07/16/24 12:32 Hydrocodone/Apap 5/325 Tablet PO 07/19/24 21:05 1 tab Q4HR PRN Administration PAIN SCALE 4-6 (Moderate Donepezil HCl 10 mg 07/15/24 21:00 07/15/24 20:35 Donepezil Hcl 5 Mg Tablet PO 08/14/24 20:59 10 mg HS MARYELLEN Administration Heparin Sodium (Porcine) 5,000 unit 07/14/24 22:00 07/16/24 14:22 Heparin Sod Inj 5000 Unit/Ml Vial SC 07/28/24 21:59 5,000 unit Q8HR MARYELLEN Administration Hydralazine HCl 10 mg 07/15/24 17:19 Hydralazine Inj 20 Mg/Ml Vial IV 08/14/24 17:18 Q4HR PRN Hypertension Morphine Sulfate 2 mg 07/14/24 23:39 07/16/24 00:04 Morphine Sulf Inj 10 Mg/Ml Vial IVP 07/19/24 21:06 2 mg Q6H PRN Administration Pain 7-10 Sertraline HCl 75 mg 07/15/24 21:00 07/15/24 20:34 Sertraline Hcl 25 Mg Tablet PO 08/14/24 20:59 75 mg HS MARYELLEN Administration Plan The patient is a 74-year-old female with a previous medical history of Alzheimer's dementia, osteoporosis, hyperlipidemia who was brought to the ED due to mechanical fall. Patient is going to be admitted for acute lateral condyle fracture treatment and management. #Acute left femoral condyle fracture #History of osteoporosis Due to mechanical fall. Plan: - Ortho was consulted, recommended to continue conservative management, pain control and physical therapy - Pain control - Left knee splinting - Physical therapy - Plan is to discharge to SNF for rehabilitation which most likely will happen on Thursday. #Alzheimer disease #Cognitive decline #Gait imbalance Falls most likely in the setting of gradually progressive Alzheimer dementia. Patient is AOx2, according to the daughter, has a history of falls. Daughter is inquiring regarding possibility of SNF placement for rehabilitation. Plan: - Continue sertraline - Continue donepezil - Follow-up outpatient Health maintenance: FEN: regular DVT prophylaxis: heparin sc GI prophylaxis: none Dispo: med surg CODE STATUS: Full code Patient care was discussed with attending physician Dr. Dayana Swift MD PGY-2
[2024-07-16 16:00] VITALS: BP 146/77; PULSE 96; RESP 17; TEMP 37; O2SAT 90
[2024-07-16 20:00] VITALS: BP 130/70; PULSE 85; RESP 17; TEMP 36.9; O2SAT 90
[2024-07-16] MEDS: DONEPEZIL HCL 5 MG TABLET 10 MG PO (20:36)
[2024-07-16] MEDS: SERTRALINE HCL 25 MG TABLET 75 MG PO (20:36)
[2024-07-17] VITALS: BP 155/63; PULSE 80; RESP 18; TEMP 36.4; O2SAT 96
[2024-07-17 04:00] VITALS: BP 127/61; PULSE 67; RESP 18; TEMP 36.7; O2SAT 96
[2024-07-17] MEDS: HEPARIN SOD INJ 5000 UNIT/ML VIAL SC ×3 (05:02→21:27)
[2024-07-17 06:10] LABS: Basophils % (Auto) 1 % (0-2.5); Eosinophils # (Auto) 0.1 Thou/mm3 (0.0-0.5); Eosinophils % (Auto) 2 % (0-10); Hematocrit 32.2 % (36.0-46.0); Hemoglobin 11.2 g/dL (12.0-16.0); Immature Granulocytes % (Auto) 0 % (0-0); Immature Granulocytes Auto 0.01 Thou/mm3 (0.00-0.00); Lymphocytes # (Auto) 1.7 Thou/mm3 (1.0-4.8); Lymphocytes % (Auto) 29 % (10-50); Mean Corpuscular HGB Conc 34.8 g/dl (31.0-37.0); Mean Corpuscular Hemoglobin 30.8 pg (25.0-35.0); Mean Corpuscular Volume 89 fL (80-100); Monocytes # (Auto) 0.6 Thou/mm3 (0.0-0.8); Monocytes % (Auto) 10 % (0-12); Neutrophils # (Auto) 3.4 Thou/mm3 (1.8-7.7); Neutrophils % (Auto) 59 % (37-80); Nucleated Red Blood Cell % 0 /100 WBC (0); Platelet Count 141 Thou/mm3 (140-440); RDW Standard Deviation 40.5 fL (36.4-46.3); Red Blood Count 3.64 Miln/mm3 (4.00-5.20); White Blood Count 5.8 Thou/mm3 (3.6-11.0)
--- NOTE | 2024-07-17 06:46 | PC.NURSE ---
called Dr. East regarding patient has not had a bowel movement since 07/13, per patient she is passing gas and bowels are active. Per MD will put in order for PRN bowel regimen.
[2024-07-17 06:50] LABS: Alanine Aminotransferase 7 U/L (10-49); Albumin, Serum 3.6 gm/dL (3.4-4.8); Albumin/Globulin Ratio 1.5 (1.2-2.2); Alkaline Phosphatase 57 U/L (46-116); Anion Gap 9 (7-16); Aspartate Amino Transferase 14 U/L (0-34); BUN/Creatinine Ratio 13 Ratio (12-20); Bilirubin,Total 0.8 mg/dL (0.3-1.2); Blood Urea Nitrogen 8 mg/dL (9-23); Calcium 8.8 mg/dL (8.3-10.6); Calcium (Corrected) 9.1 mg/dL (8.5-10.1); Carbon Dioxide 29.5 mMol/L (20.0-31.0); Chloride 104 mMol/L (98-107); Creatinine (Component) 0.6 mg/dL (0.6-1.3); Estimated Creatinine Clearance 83.2 mL/min (>60); Globulin 2.4 gm/dL (2.3-3.5); Glucose 102 mg/dL (74-106); Magnesium 1.9 mg/dL (1.6-2.6); Osmolality,Calculated 281 (275-295); Phosphorous 3.2 mg/dL (2.4-5.1); Potassium 3.4 mMol/L (3.4-5.1); Sodium 142 mMol/L (136-145); eGFR > 60 See Note
[2024-07-17 08:00] VITALS: BP 125/60; PULSE 71; RESP 17; TEMP 36.2; O2SAT 97
[2024-07-17] MEDS: SENNA TABLET 1 TAB PO (08:36)
[2024-07-17] MEDS: POTASSIUM CHLORIDE 10% 20 MEQ/15 ML UDC 40 MEQ PO (08:36)
[2024-07-17] MEDS: HYDROcodone/APAP 5/325 TABLET 1 TAB PO ×2 (08:36→20:31)
[2024-07-17 12:00] VITALS: BP 108/60; PULSE 71; RESP 16; TEMP 36.6; O2SAT 98
--- NOTE | 2024-07-17 13:03 | ESPR_ITS ---
<Statement entered by Kyra Anne MD - 07/22/24 12:56> I reviewed above note and agree with findings and plans. I have also personally examined the patient with medicine team and went over assessment and plan with medical team including architect intern and resident physician. Documentation for date of: 07/17/24 Subjective Subjective Interval history: No overnight events reported for patient. No temperatures overnight. Patient has remained hemodynamically stable. No bowel movements despite senna and MiraLAX added on board. Lactulose x 1 added. Pending Ortho consult. Pending physical therapy and SNF placement. Patient stated mild tenderness noted on left knee near condlye fracture. Patient received Vernon overnight as well as this morning for pain management. Potassium repleated. Exam Vital Signs Temp Pulse Resp BP Pulse Ox O2 Del Method O2 Flow Rate 97.9 F 71 16 108/60 98 Nasal Cannula 2 07/17/24 12:00 07/17/24 12:00 07/17/24 12:00 07/17/24 12:00 07/17/24 12:00 07/17/24 12:00 07/17/24 12:00 Narrative Exam General Appearance: Alert & Oriented X3, thin female who is lying in bed in no acute distress. Tenderness of the left later knee HEENT: Skull symmetrical and atraumatic. Conjunctivae pin and moist. Pupils equal, round, reactive to light and accommodation (PERRL). External ear without lesion or discharge. Straight, nares patient, mucosa pink, no discharge. No thyroid nodule appreciated. No cervical lymphadenopathy. Cardio: Normal Rate and Rhythm with S1 and S2 heart sounds. No murmurs or extra heart sounds auscultated. No bruits on carotid auscultation. No peripheral edema or cyanosis. Lungs: Symmetric with good expansion. Chest and back non-tender. Breath sounds vesicular without crackles, wheezing or rhonchi Abdomen: Non-tender, Non-distended, Normal Reactive Bowel Sounds Neuro: Alert, cooperative, oriented to person, place, and time. Speech clear. CN grossly intact. Upper motor strength 5/5 and Lower motor strength 5/5. Sensation intact. Objective Labs 07/17/24 04:35 07/17/24 04:35 Labs: Laboratory Results - last 24 hr 07/17/24 04:35 WBC 5.8 RBC 3.64 L Hgb 11.2 L Hct 32.2 L MCV 89 MCH 30.8 MCHC 34.8 RDW Std Deviation 40.5 Plt Count 141 Neut % (Auto) 59 Lymph % (Auto) 29 [place] % (Auto) 10 Eos % (Auto) 2 Baso % (Auto) 1 Neut # (Auto) 3.4 Lymph # (Auto) 1.7 [place] # (Auto) 0.6 Eos # (Auto) 0.1 Baso # (Auto) 0.0 Immature Gran # (Auto) 0.01 H Absolute Nucleated RBC 0.00 Immature Gran % 0 Nucleated RBC % 0 Sodium 142 Potassium 3.4 Chloride 104 Carbon Dioxide 29.5 Anion Gap 9 BUN 8 L Creatinine 0.6 Estim Creat Clear Calc 83.2 eGFR > 60 BUN/Creatinine Ratio 13 Glucose 102 Calculated Osmolality 281 Calcium 8.8 Corrected Calcium 9.1 Phosphorus 3.2 Magnesium 1.9 Total Bilirubin 0.8 AST 14 ALT 7 L Alkaline Phosphatase 57 Total Protein 6.0 Albumin 3.6 Globulin 2.4 Albumin/Globulin Ratio 1.5 Quality Measures Quality Measures VTE prophylaxis Advance care planning discussed with:: patient Assessment & Plan Assessment Current Active Medications: Generic Name Dose Route Start Last Admin Trade Name Freq PRN Reason Stop Dose Admin Acetaminophen 650 mg 07/14/24 21:47 Acetaminophen 325 Mg Tablet PO 08/13/24 21:05 Q6H PRN Fever >100.3 or pain 1-3 Hydrocodone Bitart/Acetaminophen 1 tab 07/14/24 21:06 07/17/24 08:36 Hydrocodone/Apap 5/325 Tablet PO 07/19/24 21:05 1 tab Q4HR PRN Administration PAIN SCALE 4-6 (Moderate Donepezil HCl 10 mg 07/15/24 21:00 07/16/24 20:36 Donepezil Hcl 5 Mg Tablet PO 08/14/24 20:59 10 mg HS MARYELLEN Administration Heparin Sodium (Porcine) 5,000 unit 07/14/24 22:00 07/17/24 05:02 Heparin Sod Inj 5000 Unit/Ml Vial SC 07/28/24 21:59 5,000 unit Q8HR MARYELLEN Administration Hydralazine HCl 10 mg 07/15/24 17:19 Hydralazine Inj 20 Mg/Ml Vial IV 08/14/24 17:18 Q4HR PRN Hypertension Morphine Sulfate 2 mg 07/14/24 23:39 07/16/24 00:04 Morphine Sulf Inj 10 Mg/Ml Vial IVP 07/19/24 21:06 2 mg Q6H PRN Administration Pain 7-10 Polyethylene Glycol 17 gm 07/17/24 05:34 Polyethylene Glycol 17 Gm Packet PO 08/16/24 08:59 QDAY PRN constipation Protocol Sennosides 1 tab 07/17/24 09:00 07/17/24 10:48 Senna Tablet PO 08/16/24 08:59 Not Given QDAY MARYELLEN Protocol Sertraline HCl 75 mg 07/15/24 21:00 07/16/24 20:36 Sertraline Hcl 25 Mg Tablet PO 08/14/24 20:59 75 mg HS MARYELLEN Administration Plan The patient is a 74-year-old female with a previous medical history of Alzheimer's dementia, osteoporosis, hyperlipidemia who was brought to the ED due to mechanical fall. Patient is going to be admitted for acute lateral condyle fracture treatment and management. #Acute left femoral condyle fracture #History of osteoporosis #history of bilateral Arthroplasty Due to mechanical fall. Plan: - Ortho was consulted, recommended to continue conservative management, pain control and physical therapy - Pain control - Left knee splinting - Physical therapy-Pending - Plan is to discharge to SNF for rehabilitation which most likely will happen on Thursday. #Alzheimer disease #Cognitive decline #Gait imbalance Falls most likely in the setting of gradually progressive Alzheimer dementia. Patient is AOx2, according to the daughter, has a history of falls. Daughter is inquiring regarding possibility of SNF placement for rehabilitation. Plan: - Continue sertraline - Continue donepezil - Follow-up outpatient #Normocytic Anemia Patient's hemoglobin has decreased since admission and currently at 11.2 from 12.9, likely reactive from trauma and inflammation from fracture. Less likely secondary to acute blood loss such as peptic ulcer disease vs hemorrhoids from 2017. Plan -Continue to monitor Hgb -Consider Iron tablets as outpatient but there is history of constipation #Constipation Pateint stated that she has a history of constipation as outpatient, likely worsened from opioid medication for pain. Plan -Senna -Mirlax -Lactulose 20 mg X 1 (07/17/2024) Health maintenance: FEN: regular DVT prophylaxis: heparin sc GI prophylaxis: none Dispo: med surg CODE STATUS: Full code - The patient's plan was discussed with attending Dr. Dayana Marie MD PGY1 Internal Medicine
[2024-07-17] MEDS: LACTULOSE SYRUP 20 GM/30 ML UDC PO (15:31)
[2024-07-17 16:00] VITALS: BP 136/63; PULSE 72; RESP 18; TEMP 36.2; O2SAT 94
[2024-07-17 20:00] VITALS: BP 128/69; PULSE 80; RESP 18; TEMP 37.2; O2SAT 93
[2024-07-17] MEDS: SERTRALINE HCL 25 MG TABLET 75 MG PO (20:31)
[2024-07-17] MEDS: DONEPEZIL HCL 5 MG TABLET 10 MG PO (20:32)
[2024-07-18] VITALS: BP 128/62; PULSE 69; RESP 18; TEMP 36.7; O2SAT 93
[2024-07-18 04:00] VITALS: BP 134/61; PULSE 69; RESP 18; TEMP 37; O2SAT 94
[2024-07-18] MEDS: HEPARIN SOD INJ 5000 UNIT/ML VIAL SC ×2 (05:08→13:20)
[2024-07-18 05:36] LABS: Basophils % (Auto) 0 % (0-2.5); Eosinophils # (Auto) 0.1 Thou/mm3 (0.0-0.5); Eosinophils % (Auto) 3 % (0-10); Hematocrit 32.6 % (36.0-46.0); Hemoglobin 11.3 g/dL (12.0-16.0); Immature Granulocytes % (Auto) 0 % (0-0); Immature Granulocytes Auto 0.01 Thou/mm3 (0.00-0.00); Lymphocytes # (Auto) 1.5 Thou/mm3 (1.0-4.8); Lymphocytes % (Auto) 32 % (10-50); Mean Corpuscular HGB Conc 34.7 g/dl (31.0-37.0); Mean Corpuscular Hemoglobin 30.1 pg (25.0-35.0); Mean Corpuscular Volume 87 fL (80-100); Monocytes # (Auto) 0.5 Thou/mm3 (0.0-0.8); Monocytes % (Auto) 10 % (0-12); Neutrophils # (Auto) 2.7 Thou/mm3 (1.8-7.7); Neutrophils % (Auto) 55 % (37-80); Nucleated Red Blood Cell % 0 /100 WBC (0); Platelet Count 156 Thou/mm3 (140-440); RDW Standard Deviation 39.3 fL (36.4-46.3); Red Blood Count 3.76 Miln/mm3 (4.00-5.20); White Blood Count 4.9 Thou/mm3 (3.6-11.0)
[2024-07-18 05:58] LABS: Alanine Aminotransferase 11 U/L (10-49); Albumin, Serum 3.7 gm/dL (3.4-4.8); Albumin/Globulin Ratio 1.5 (1.2-2.2); Alkaline Phosphatase 58 U/L (46-116); Anion Gap 8 (7-16); Aspartate Amino Transferase 16 U/L (0-34); BUN/Creatinine Ratio 15 Ratio (12-20); Bilirubin,Total 0.7 mg/dL (0.3-1.2); Blood Urea Nitrogen 9 mg/dL (9-23); Calcium 9.1 mg/dL (8.3-10.6); Calcium (Corrected) 9.3 mg/dL (8.5-10.1); Carbon Dioxide 30.3 mMol/L (20.0-31.0); Chloride 104 mMol/L (98-107); Creatinine (Component) 0.6 mg/dL (0.6-1.3); Estimated Creatinine Clearance 83.2 mL/min (>60); Globulin 2.4 gm/dL (2.3-3.5); Glucose 105 mg/dL (74-106); Magnesium 1.9 mg/dL (1.6-2.6); Osmolality,Calculated 281 (275-295); Phosphorous 3.9 mg/dL (2.4-5.1); Potassium 3.8 mMol/L (3.4-5.1); Sodium 142 mMol/L (136-145); Total Protein 6.1 gm/dL (5.7-8.2); eGFR > 60 See Note
[2024-07-18] MEDS: POTASSIUM CHLORIDE 20 mEq TABCR PO (07:57)
[2024-07-18 08:00] VITALS: BP 114/59; PULSE 71; RESP 16; TEMP 37.1; O2SAT 96
[2024-07-18] MEDS: SENNA TABLET 1 TAB PO (08:00)
[2024-07-18 08:38] VITALS: BMI 30.9
[2024-07-18] MEDS: HYDROcodone/APAP 5/325 TABLET 1 TAB PO (11:00)
[2024-07-18 12:00] VITALS: BP 134/64; PULSE 78; RESP 16; TEMP 36.7; O2SAT 95
--- NOTE | 2024-07-18 12:23 | PC.SS ---
SS met with pt and dtr Soni in regards to DC plan. SS provided choices for [facility], [facility], [facility], [facility], per Soni their #1 choice is [facility] and #2 is [facility]. SS updated referral via [facility] to include those options, pending responses.
--- NOTE | 2024-07-18 12:44 | PC.CC ---
PASRR Level 1 letter downloaded; Level 2 not required.
[2024-07-18 14:13] VITALS: BMI 12.0
--- NOTE | 2024-07-18 14:14 | PC.SS ---
Addendum entered by Latonya Sandoval 07/18/24 14:16: [facility] Bar[facility], Original Note: [facility] and [facility] both requesting PT notes. SS informed thempending notes to be updated as they are not in system just yet. SS also updates Lele, pt dtr [phone] as these facilities are her #1 and #2 choice.
--- NOTE | 2024-07-18 14:54 | ESDS_ITS ---
<Statement entered by Kyra Anne MD - 07/22/24 13:00> I reviewed above note and agree with findings and plans. I have also personally examined the patient with medicine team and went over assessment and plan with medical team including international account executive and resident physician. Planned Discharge Date 07/18/24 DS: Providers Provider Date of admission: 07/14/24 21:06 Primary care physician: Saúl Hughes MD Admitting Provider: Darian Almendarez MD Attending Provider on Admission: Kyra Anne MD Consults: 07/14/24 21:48 Consult to Orthopedic Routine Comment: Left lateral epicondyle fracture Consulting Provider: Adrien Rodriguez 07/16/24 11:44 Referral Physical Therapy Urgent Comment: Physician Instructions: Attending Provider on DC: Marissa Marie MD Discharging Provider: Marissa Marie MD DS: Diagnosis Problem List Completed Was Problem List Reviewed/Reconciled?: Yes Hospital Course Hospital Course Hospital course: Summary: The patient is a 74-year-old female with a previous medical history of Alzheimer's dementia, osteoporosis, hyperlipidemia who was brought to the ED due to mechanical fall. Patient is going to be admitted for acute lateral condyle fracture treatment and management. ER Course: Blood pressure 157/91, pulse 66, afebrile, saturating well on room air. Labs show WBC count 9.7, hemoglobin 12.9, platelets 167, INR 1.0, sodium 140, potassium 4.4, BUN 16, creatinine 07, glucose 138, imaging showed acute fracture of lateral femoral condyle with minimal offset, chest x-ray was negative for pn eumonia or pulmonary edema. EKG showed sinus rhythm. Patient is going to be admitted for acute lateral condyle fracture treatment and management. Hospital Course: During hospital course, patient's left femoral condlye fracture was put in a splint with goal treatmetn of RICE. Pain mangement was added on board. Physical therapy consult was placed with recommendations to acute rehab placement for focused treatment of regaining funciton. Knee CT, showed acute fracture through the lateral femoral condlye w/ minimal offset. Chest x-ray showed no pneumonia or pulmonary edema. Safe to discharge on oral pain manegement, please follow up with primary care provider or SNF physical for further recommendations on pain management. #Acute left femoral condyle fracture #History of osteoporosis #History of bilateral Arthroplasty #Alzheimer disease #Cognitive decline #Gait imbalance #Normocytic Anemia #Constipation -[place] 5 mg every 4 hrs as needed, no refills, please follow up with your prima ry care provider for pain management. -Please continue home medication -Please follow up with your primary care provider within one week of discharge -If your symptoms worsen,please seek immediate medical attention and return to your nearest emergency room -If you do not have a primary care provider, you may follow up at the [facility] at [address] [place] [address] [address], [place] [address], - The patient's plan was discussed with attending Dr. Anne and senior residents Dr. Geovani Marie MD PGY1 Internal Medicine Time Spent with Patient Time attestation: Total time spent providing and/or coordinating discharge services: at least 30 minutes of care and coordination. Time spent: Greater than 30 minutes Exam Vital Signs Temp Pulse Resp BP Pulse Ox O2 Del Method O2 Flow Rate 98.0 F 78 16 134/64 H 95 Nasal Cannula 1 07/18/24 12:00 07/18/24 12:07/18/24 12:07/18/24 12:00 07/18/24 12:00 07/18/24 12:07/18/24 12:00 Narrative Exam General Appearance: Alert & Oriented X3, thin female who is lying in bed in no acute distress. Improved tenderness of the left later knee. HEENT: Skull symmetrical and atraumatic. Conjunctivae pin and moist. Pupils equal, round, reactive to light and accommodation (PERRL). External ear without lesion or discharge. Straight, nares patient, mucosa pink, no discharge. No thyroid nodule appreciated. No cervical lymphadenopathy. Cardio: Normal Rate and Rhythm with S1 and S2 heart sounds. No murmurs or extra heart sounds auscultated. No bruits on carotid auscultation. No peripheral edema or cyanosis. Lungs: Symmetric with good expansion. Chest and back non-tender. Breath sounds vesicular without crackles, wheezing or rhonchi Abdomen: Non-tender, Non-distended, Normal Reactive Bowel Sounds Neuro: Alert, cooperative, oriented to person, place, and time. Speech clear. CN grossly intact. Upper motor strength 5/5 and Lower motor strength 5/5. Sensation intact. Discharge Plan Plan Patient Disposition: Xfer Skilled Nsg Fac (SNF) Patient condition on transfer: Stable Care Plan Goals: Instructions: -[place] 5 mg every 4 hrs as needed, no refills, please follow up with your primary care provider for pain management. -Please continue home medication -Please follow up with your primary care provider within one week of discharge -If your symptoms worsen,please seek immediate medical attention and return to your nearest emergency room -If you do not have a primary care provider, you may follow up at the [facility] at [facility] [address], [place] [address], Prescriptions/Referrals Prescriptions/Med Rec: New sennosides [senna] 8.6 mg Tablet 8.6 mg PO QDAY PRN (Reason: constipation) 14 Days Qty: 14 0RF donepezil 5 mg Tablet 10 mg PO HS 14 Days Qty: 28 0RF hydrocodone-acetaminophen 5-325 mg Tablet 1 tab PO Q4HR MDD nor more than 4 doses PRN (Reason: Pain Scale 4-6 (Moderate) Qty: 10 0RF sertraline 25 mg Tablet 75 mg PO HS 14 Days Qty: 42 0RF Referrals: Saúl Hughes MD [Primary Care Provider] - Adrien Rodriguez MD [Physician] - Patient/Caregiver Discharge Instructions Discharge Activity: as per physical therapy Education Materials: Communicating About Pain, Common Types of Fractures Print Language: Dominican Stand Alone Forms: Cynthia Award Info., Patient Portal Info Letter Discharge Order Discharge Orders: Discharge (Routine); Ordered 07/18/24 Ordered By: Agnieszka Swift Quality Discharge Quality Measures VTE prophylaxis
--- NOTE | 2024-07-18 15:13 | PC.SS ---
SS spoke to Shelby with [facility] who requested Progress notes showing pt doesnt require surgical intervention and diet/ wieght of pt.Micah utilized XM
[2024-07-18 16:00] VITALS: BP 127/74; PULSE 86; RESP 19; TEMP 36.1; O2SAT 95
[2024-07-18 20:00] VITALS: BP 129/63; PULSE 77; RESP 18; TEMP 37.1; O2SAT 92
[2024-07-18] MEDS: SERTRALINE HCL 25 MG TABLET 75 MG PO (20:11)
[2024-07-18] MEDS: DONEPEZIL HCL 5 MG TABLET 10 MG PO (20:12)
[2024-07-19] VITALS: BP 107/70; PULSE 87; RESP 19; TEMP 36.8; O2SAT 92
[2024-07-19] MEDS: HYDROcodone/APAP 5/325 TABLET 1 TAB PO ×2 (02:00→10:04)
[2024-07-19 04:00] VITALS: BP 127/66; PULSE 73; RESP 17; TEMP 36.9; O2SAT 91
[2024-07-19 06:05] LABS: Basophils % (Auto) 1 % (0-2.5); Eosinophils # (Auto) 0.1 Thou/mm3 (0.0-0.5); Eosinophils % (Auto) 1 % (0-10); Hemoglobin 11.3 g/dL (12.0-16.0); Immature Granulocytes % (Auto) 0 % (0-0); Immature Granulocytes Auto 0.02 Thou/mm3 (0.00-0.00); Lymphocytes # (Auto) 1.7 Thou/mm3 (1.0-4.8); Lymphocytes % (Auto) 29 % (10-50); Mean Corpuscular HGB Conc 34.2 g/dl (31.0-37.0); Mean Corpuscular Hemoglobin 29.8 pg (25.0-35.0); Mean Corpuscular Volume 87 fL (80-100); Monocytes # (Auto) 0.5 Thou/mm3 (0.0-0.8); Monocytes % (Auto) 9 % (0-12); Neutrophils # (Auto) 3.6 Thou/mm3 (1.8-7.7); Neutrophils % (Auto) 61 % (37-80); Nucleated Red Blood Cell % 0 /100 WBC (0); Platelet Count 187 Thou/mm3 (140-440); RDW Standard Deviation 39.4 fL (36.4-46.3); Red Blood Count 3.79 Miln/mm3 (4.00-5.20); White Blood Count 5.9 Thou/mm3 (3.6-11.0)
[2024-07-19 06:23] LABS: Anion Gap 8 (7-16); BUN/Creatinine Ratio 22 Ratio (12-20); Blood Urea Nitrogen 13 mg/dL (9-23); Carbon Dioxide 28.8 mMol/L (20.0-31.0); Chloride 103 mMol/L (98-107); Creatinine (Component) 0.6 mg/dL (0.6-1.3); Estimated Creatinine Clearance 81.4 mL/min (>60); Glucose 113 mg/dL (74-106); Osmolality,Calculated 280 (275-295); Potassium 3.8 mMol/L (3.4-5.1); Sodium 140 mMol/L (136-145); eGFR > 60 See Note
[2024-07-19 08:00] VITALS: BP 114/61; PULSE 72; RESP 17; TEMP 36.6; O2SAT 92
[2024-07-19] MEDS: POTASSIUM CHLORIDE 20 mEq TABCR PO (08:20)
[2024-07-19] MEDS: SENNA TABLET 1 TAB PO (08:20)
--- NOTE | 2024-07-19 09:21 | PC.SS ---
[facility], requested ortho notes/consult. None noted in chart other then Progress note from Team stating, no SX intervention needed per Ortho. SS utilized [employer] to send progress note to Shelby. [facility], requested OT notes, SS informed them we do not have OT here, PT notes submitted.
--- NOTE | 2024-07-19 09:54 | PC.NURSE ---
pt is requiring assistance for activities of daily living, including preparing meals, getting dressed, and toileting d/t knee fracture
--- NOTE | 2024-07-19 10:13 | PC.SS ---
SS met with pt and dtr Ning at to update on placement. [facility] is their #1 choice and [facility] is #2, Ss updated on process and information being requested by both facilities. SS informed them we hope to have an answer by late this afternoon.
[2024-07-19 11:42] VITALS: BMI 11.0
[2024-07-19 12:00] VITALS: BP 117/63; PULSE 67; RESP 18; TEMP 36.7; O2SAT 94
--- NOTE | 2024-07-19 13:10 | ESDS_ITS ---
<Statement entered by Kyra Anne MD - 07/22/24 13:01> I reviewed above note and agree with findings and plans. I have also personally examined the patient with medicine team and went over assessment and plan with medical team including research intern and resident physician. Planned Discharge Date 07/19/24 DS: Providers Provider Date of admission: 07/14/24 21:06 Primary care physician: Saúl Hughes MD Admitting Provider: Darian Almendarez MD Attending Provider on Admission: Kyra Anne MD Consults: 07/14/24 21:48 Consult to Orthopedic Routine Comment: Left lateral epicondyle fracture Consulting Provider: Adrien Rodriguez 07/16/24 11:44 Referral Physical Therapy Urgent Comment: Physician Instructions: Attending Provider on DC: Marissa Marie MD Discharging Provider: Marissa Marie MD DS: Diagnosis Problem List Completed Was Problem List Reviewed/Reconciled?: Yes Hospital Course Hospital Course Hospital course: patient failed to be discharged on 07/18/2024 as placement for SNF was still not confirmed, patient will be discharged on 07/19/2024. Summary: The patient is a 74-year-old female with a previous medical history of Alzheimer's dementia, osteoporosis, hyperlipidemia who was brought to the ED due to mechanical fall. Patient is going to be admitted for acute lateral condyle fracture treatment and management. ER Course: Blood pressure 157/91, pulse 66, afebrile, saturating well on room air. Labs show WBC count 9.7, hemoglobin 12.9, platelets 167, INR 1.0, sodium 140, potassium 4.4, BUN 16, creatinine 07, glucose 138, imaging showed acute fracture of lateral femoral condyle with minimal offset, chest x-ray was negative for pneumonia or pulmonary edema. EKG showed sinus rhythm. Patient is going to be admitted for acute lateral condyle fracture treatment and management. Hospital Course: During hospital course, patient's left femoral condlye fracture was put in a splint with goal treatmetn of RICE. Pain mangement was added on board. Physical therapy consult was placed with recommendations to acute rehab placement for focused treatment of regaining funciton. Knee CT, showed acute fracture through the lateral femoral condlye w/ minimal offset. Chest x-ray showed no pneumonia or pulmonary edema. Safe to discharge on oral pain manegement, please follow up with primary care provider or SNF physical for further recommendations on pain management. #Acute left femoral condyle fracture #History of osteoporosis #History of bilateral Arthroplasty #Alzheimer disease #Cognitive decline #Gait imbalance #Normocytic Anemia #Constipation -[place] 5 mg every 4 hrs as needed, no refills, please follow up with your primary care provider for pain management. -Please continue home medication -Please follow up with your primary care provider within one week of discharge -If your symptoms worsen,please seek immediate medical attention and return to your nearest emergency room -If you do not have a primary care provider, you may follow up at the [facility] at [facility] [address], [place] [address], - The patient's plan was discussed with attending Dr. Anne and senior residents Dr. Geovani Marie MD PGY1 Internal Medicine Senior resident attestation: Patient evaluated and examined at the bedside, plan of care discussed with rest of the team including my attending physician, except as noted. Geovani PGY2 Time Spent with Patient Time attestation: Total time spent providing and/or coordinating discharge services: at least 30 minutes of care and coordination Time spent: Greater than 30 minutes Exam Vital Signs Temp Pulse Resp BP Pulse Ox O2 Del Method O2 Flow Rate 98.0 F 67 18 117/63 94 L Room Air 1 07/19/24 12:07/19/24 12:07/19/24 12:07/19/24 12:07/19/24 12:07/19/24 12:07/18/24 16:00 Narrative Exam General Appearance: Alert & Oriented X3, thin female who is lying in bed in no acute distress. Improved tenderness of the left later knee. HEENT: Skull symmetrical and atraumatic. Conjunctivae pin and moist. Pupils equal, round, reactive to light and accommodation (PERRL). External ear without lesion or discharge. Straight, nares patient, mucosa pink, no discharge. No thyroid nodule appreciated. No cervical lymphadenopathy. Cardio: Normal Rate and Rhythm with S1 and S2 heart sounds. No murmurs or extra heart sounds auscultated. No bruits on carotid auscultation. No peripheral edema or cyanosis. Lungs: Symmetric with good expansion. Chest and back non-tender. Breath sounds vesicular without crackles, wheezing or rhonchi Abdomen: Non-tender, Non-distended, Normal Reactive Bowel Sounds Neuro: Alert, cooperative, oriented to person, place, and time. Speech clear. CN grossly intact. Upper motor strength 5/5 and Lower motor strength 5/5. Sensation intact. Discharge Plan Plan Patient Disposition: Xfer Skilled Nsg Fac (SNF) Patient condition on transfer: Stable Care Plan Goals: Instructions: -[place] 5 mg every 4 hrs as needed, no refills, please follow up with your primary care provider for pain management. -Please continue home medication -Please follow up with your primary care provider within one week of discharge -If your symptoms worsen,please seek immediate medical attention and return to your nearest emergency room -If you do not have a primary care provider, you may follow up at the [facility] at [facility] [address] [address], [place] [address], Prescriptions/Referrals Prescriptions/Med Rec: New sennosides [senna] 8.6 mg Tablet 8.6 mg PO QDAY PRN (Reason: constipation) 14 Days Qty: 14 0RF donepezil 5 mg Tablet 10 mg PO HS 14 Days Qty: 28 0RF hydrocodone-acetaminophen 5-325 mg Tablet 1 tab PO Q4HR MDD nor more than 4 doses PRN (Reason: Pain Scale 4-6 (Moderate) Qty: 10 0RF sertraline 25 mg Tablet 75 mg PO HS 14 Days Qty: 42 0RF Referrals: Saúl Hughes MD [Primary Care Provider] - Adrien Rodriguez MD [Physician] - Patient/Caregiver Discharge Instructions Discharge Activity: as per physical therapy Education Materials: Communicating About Pain, Common Types of Fractures Print Language: Telugu Stand Alone Forms: Cynthia Award Info., Patient Portal Info Letter Discharge Order Discharge Orders: Discharge (Routine); Ordered 07/18/24 Ordered By: Agnieszka Swift Quality Discharge Quality Measures VTE prophylaxis
--- NOTE | 2024-07-19 13:29 | PC.SS ---
Addendum entered by Latonya Sandoval 07/19/24 15:15: MARCO A attempted to contact [facility], to update on ETA, no answer. left with call back information. Updated packet sent via [employer] included Addendum entered by Latonya Sandoval 07/19/24 14:35: SS spoke to Soni and they have chosen [facility] as our DC plan. SS reached out to Shelby at [facility] and updated her, SS also reached out to Priti at [facility] and updated her. SS transferred her to JAIMIE Peralta for information on behaviors Original Note: SS received a call from Shelby from [facility], they have accepted the pt in their short stay unit. Shelby stated to send send over PASRR, vitals, labs, and DC summary. Patient will need to have all imaging on a disc to accompany patient to our short stay unit. SS updated Soni and she stated she would like to confirm with other siblings they want [facility] over [facility].
--- NOTE | 2024-07-19 13:39 | ESCONSULT_ITS ---
RE: XAVIER FORREST : 1950 DATE OF CONSULTATION: 07/15/2024 Thank you, for asking me to consult on the patient whom I saw on 07/15/2024. HISTORY OF PRESENT ILLNESS: The patient was admitted on 07/14/2024 with history of fall. The patient injured her left knee. An x-ray was obtained and following that CT scan was obtained. It revealed almost nondisplaced fracture of the left lateral femoral condyle. The patient is also status post left total knee replacement. PAST MEDICAL HISTORY: The patient has a history of Alzheimer's disease, hyperlipidemia, and osteoporosis. PAST SURGICAL HISTORY: The patient has history of . The patient underwent bilateral knee replacement in the past. DRUG HISTORY: The patient is not on any known home medication. ALLERGIES: NIL KNOWN. FAMILY HISTORY AND SOCIAL HISTORY: Noncontributory. PHYSICAL EXAMINATION: GENERAL: Alert and oriented lady and she was taking active part in discussion. VITAL SIGNS: Pulse is 78 per minute. Blood pressure is 136/84. NECK: Soft, supple, no masses felt. Trachea is centrally placed. CARDIOVASCULAR SYSTEM: First and second heart sound normal. No murmur heard. RESPIRATORY SYSTEM: Bilateral vesicular breath sounds. CHEST: Clear. ABDOMEN: Soft. No masses felt. Bowel sounds present. EXTREMITIES: Left knee examination revealed mild swelling. There is 1+ tenderness. Range of motion not tested due to pain. Neurovascularly it is intact. DIAGNOSTIC DATA: X-ray and a CT scan of the left knee was reviewed. As stated earlier, it revealed almost nondisplaced fracture of the left lateral femoral condyle. ASSESSMENT AND PLAN: I discussed the situation with the patient and her family member who were present in the room. It was okay with the patient to have discussion with them as well. I explained about the nature of the fracture. It was explained with the help of pictures and diagram. Detailed discussion took place. I explained that there are two ways of dealing that. One is that to accept the position and use a knee immobilizer and the patient will be nonweightbearing at least for 6-8 weeks. The other option was a surgical intervention. That may stabilize the thing, but there is no guarantee about that. I also stated that in case the fracture does not get displaced, it should heal up. On the other hand, if it does not heal up, then one can always go back and do the surgery. After detailed discussion, the patient and the family wanted to do conservative treatment. The patient and the family also requested me that the patient should be transferred to SNF. There is a requirement for the SNF that the patient should stay for at least 3 nights or so. I ordered physical therapy to be involved. Left lower leg will be not weight bear. I am told that the patient is going to stay till or 19 of July anyway until we get approval from the insurance company. Anticoagulant or DVT prophylaxis may also be instituted. Once again, I thank you for letting me take part in the management of the patient. DT: 12:25:15 TT: 13:34:00 Ref: [id number] - TID: [id number]
--- NOTE | 2024-07-19 14:45 | PC.SS ---
Addendum entered by Latonya Sandoval 07/19/24 15:13: SS spoke to [facility] at bedside, they are unable to cover transport to [place], Micah to utilize one time [facility] with [facility] for DC today, ETA [id number]. Packet prepared on chart, JAIMIE Rendon and DERIAN Metz, updated. Original Note: SS contacted [facility] in [place] to transport today for [facility], spoke to Lea, provided Lea with [facility] contact information for quote.
[2024-07-19 16:00] VITALS: BP 109/66; PULSE 63; RESP 18; TEMP 36.6; O2SAT 95
--- NOTE | 2024-07-19 17:35 | ESPR_ITS ---
RE: XAVIER FORREST : 1950 DATE OF SERVICE: 07/19/2024 PROGRESS REPORT: The patient was seen by me again on 07/18/2024. The patient was doing fine. The patient was comfortable. Examination of the left knee revealed mild swelling and mild tenderness. The patient was able to be up and about with help of physical therapist. Knee immobilizer was on. I was told by the nurse that we are waiting for the placement to SNF and most likely to be available either on the night of 07/18/2024 or on 07/19/2024. I am contacted and told that the patient is accepted in a SNF. The patient may be discharged to a SNF. The patient will be nonweightbearing and the detention can contact my office and we will make a followup appointment for her. Once again, I thank you for letting me take part in the management of the patient. DT: 12:27:10 TT: 17:33:00 Ref: [id number] - TID: [id number]
== END 2024-07-19 17:30 | disposition skilled nursing facility (03) | DRG 534 ==
LOC: SERX 20:59 → SERHOLD 07-15 05:46 → S3NX 07-15 05:46
PROVIDERS: Admitting Provider Internal Medicine; Emergency Provider Emergency Medicine; PCP Family Medicine; Visit Provider Internal Medicine
DX: S72.422A Displaced fracture of lateral condyle of left femur, initial encounter for closed fracture (principal); E78.5 Hyperlipidemia, unspecified; M81.8 Other osteoporosis without current pathological fracture; G30.9 Alzheimer's disease, unspecified; R26.89 Other abnormalities of gait and mobility; D64.9 Anemia, unspecified; K59.00 Constipation, unspecified; F02.80 Dementia in other diseases classified elsewhere, unspecified severity, without behavioral disturbance, psychotic disturbance, mood disturbance, and anxiety; Z96.653 Presence of artificial knee joint, bilateral; Z87.891 Personal history of nicotine dependence; Z91.81 History of falling; X50.1XXA Overexertion from prolonged static or awkward postures, initial encounter
CPT/HCPCS: 36415; 71045; 73564; 73700; 80048; 80053; 83735; 84100; 85025; 85610; 85730; 87081; 93005; 96372; 96374; 96375; 97162; 99285; J1643; J2270; J2405; J3010; J3490; J7030; A9270

== ENCOUNTER → 2024-12-12 | Outpatient (CLI) | payer MEDICARE, BC, SELFPAY ==
--- NOTE | 2024-12-12 08:56 | XR_ITS ---
Examination: Knee, left , 3 views Technique: Knee AP, lateral, oblique 3 views Date and time of exam: December 12, 2024 0912 hours INDICATIONS: Patient fell with knee dislocation July 24, 2024 FINDINGS: Subacute appearing fracture distal femoral shaft, adequate alignment No loosening of the prosthetic components IMPRESSION: Findings most consistent with subacute healing fracture supracondylar distal femoral shaft
== END | disposition home or self-care (01) ==
LOC: CDIM 08:44
PROVIDERS: PCP Family Medicine; Referring Provider Orthopaedic Surgery; Visit Provider Orthopaedic Surgery
DX: S72.402D Unspecified fracture of lower end of left femur, subsequent encounter for closed fracture with routine healing (principal); W19.XXXD Unspecified fall, subsequent encounter
CPT/HCPCS: 73562